=== PATIENT | male | born 1990 | race Caucasian/White ===

== ENCOUNTER 2016-07-28 12:32 | Emergency (ER) | payer SELFPAY ==
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
[2016-07-28 15:41] LABS: BASO # 0.1 K/uL (0.0-0.2); EOS # 0.1 K/uL (0.0-0.7); EOS % 0.9 % (0.0-4.0); HEMATOCRIT 48.2 % (35.0-51.0); LYMPH # 1.4 K/uL (1.0-4.3); LYMPH % 23.2 % (20.0-40.0); MEAN CELL VOLUME 95.6 fl (80.0-94.0); MEAN CORPUSCULAR HEMOGLOBIN 32.1 pg (27.0-31.0); MEAN CORPUSCULAR HGB CONC 33.6 g/dL (33.0-37.0); MEAN PLATELET VOLUME 8.8 fl (7.2-11.7); MONO # 0.6 K/uL (0.0-0.8); MONO % 10.3 % (0.0-10.0); NEUT # 3.8 K/uL (1.8-7.0); NEUT % 64.6 % (50.0-75.0); NRBC % 0.2 % (0.0-0.0); RED CELL DISTRIBUTION WIDTH 12.7 % (11.5-14.5); WHITE BLOOD COUNT 5.9 K/uL (4.8-10.8)
[2016-07-28 15:45] LABS: ALB/GLOB RATIO 1.3 (1.0-2.1); ALCOHOL SERUM < 10 mg/dl (0-10); ALKALINE PHOSPHATASE 82 U/L (38-126); ALT/SGPT 35 U/L (21-72); AST/SGOT 31 U/L (17-59); BILIRUBIN,TOTAL 1.2 mg/dl (0.2-1.3); BLOOD UREA NITROGEN 10 mg/dl (9-20); CALCIUM 9.8 mg/dL (8.4-10.2); CARBON DIOXIDE 27 mmol/L (22-30); CHLORIDE 100 mmol/L (98-107); GFR AFRICAN-AMERICAN > 60; GLUCOSE,RANDOM 99 mg/dL (75-110); POTASSIUM 4.2 MMOL/L (3.6-5.0); SODIUM 144 mmol/l (132-148); TOTAL PROTEIN 8.9 G/DL (6.3-8.2)
--- NOTE | 2016-07-28 16:49 | RAD ---
HISTORY: medical eval for pysch screening transfer COMPARISON: No prior. TECHNIQUE: Chest PA and lateral FINDINGS: LUNGS: No active pulmonary disease. PLEURA: No significant pleural effusion identified. No pneumothorax apparent. CARDIOVASCULAR: Normal. OSSEOUS STRUCTURES: No significant abnormalities. VISUALIZED UPPER ABDOMEN: Normal. OTHER FINDINGS: None. IMPRESSION: No active disease.
[2016-07-28 19:46] LABS: RBC URINE 2 /hpf (0-3); URINE BACTERIA RARE (<OCC); URINE BILIRUBIN NEGATIVE (NEGATIVE); URINE BLOOD NEGATIVE (NEGATIVE); URINE COLOR YELLOW (YELLOW); URINE GLUCOSE (UA) NEG (Normal); URINE KETONE NEGATIVE (NEGATIVE); URINE LEUKOCYTE ESTERASE SMALL Leu/uL (Negative); URINE PROTEIN NEGATIVE (NEGATIVE); URINE UROBILINOGEN 0.2-1.0 mg/dL (0.2-1.0); WBC URINE 5 /hpf (0-5)
[2016-07-28] MEDS ORDERED: DiphenhydrAMINE 50 mg/ml Inj ONE (21:28)
[2016-07-28] MEDS ORDERED: DiphenhydrAMINE 50 mg/ml Inj IM STA (21:48)
[2016-07-28 22:06] VITALS: RESP 18
[2016-07-28 23:55] VITALS: BP 128/80; PULSE 98; TEMP 98.2
[2016-07-28 23:59] VITALS: O2SAT 98
--- NOTE | 2016-07-29 10:51 | CARD ---
APPROVED REPORT EKG Measurement Heart [id number] <Conclusion> Normal sinus rhythm Normal ECG
== END 2016-07-29 00:17 | disposition short-term general hospital (02) ==
LOC: H.ER 12:32
DX: F20.9 Schizophrenia, unspecified (principal)
CPT/HCPCS: 71020; 80053; 81003; 85025; 93005; 96372; 99284; G0480; J1200; J1630

== ENCOUNTER 2018-08-03 21:50 | Emergency (ER) | payer MEDICAID, OTHER ==
[2018-08-03 21:57] VITALS: RESP 18
[2018-08-03 22:54] LABS: BARBITURATES, UR NEGATIVE (NEGATIVE); BENZODIAZEPINES, UR NEGATIVE (NEGATIVE); OPIATES, UR NEGATIVE (NEGATIVE); PHENCYCLIDINE, UR NEGATIVE (NEGATIVE)
--- NOTE | 2018-08-03 23:29 | ED PDOC ---
HPI: Psych/Substance Abuse Time Seen by Provider: 08/03/18 21:55 Chief Complaint (Nursing): Psychiatric Evaluation Chief Complaint (Provider): psychiatric evaluation History Per: Patient History/Exam Limitations: no limitations Onset/Duration Of Symptoms: Hrs (today) Current Symptoms Are (Timing): Still Present Associated Symptoms: denies: Suicidal Thoughts, Suicidal Plan Additional Complaint(s): Ha Zapien is a 28 year old male, with a past medical history of schizophrenia, who was brought to the emergency department by EMS and [facility] for psychiatric and medical evaluation. He takes Haldol 1mg QD and reports being compliant every day with his medication. Patient states he had an argument with his mother today, only verbal and there was no physical altercation involved. Patient reports being upset with his mom because she was using the phone and speaking with someone he doesn't know. He reports getting upset when his mother talks to people he doesn't know who they are. Patient denies any elicit drug use or alcohol usage today, no suicidal or homicidal ideation. No further medical complaints. PMD: None provided. Past Medical History Reviewed: Historical Data, Nursing Documentation, Vital Signs Vital Signs: Last Vital Signs Temp 97.6 F 08/03/18 21:55 Pulse 81 08/03/18 21:55 Resp 18 08/03/18 21:55 BP 124/74 08/03/18 21:55 Pulse Ox 100 08/03/18 21:55 - Medical History PMH: Schizophrenia Denies: Diabetes, Hepatitis, HIV, HTN, Seizures, Sexually Transmitted Disease - Surgical History Surgical History: No Surg Hx - Family History Family History: States: Unknown Family Hx - Social History Current smoker - smoking cessation education provided: Yes (Current some days smoker) Alcohol: Other Drugs: Other (K2 and unknown) - Allergies Allergies/Adverse Reactions: Allergies Allergy/AdvReac Type Severity Reaction Status Date / Time No Known Allergies Allergy Verified 07/28/16 12:35 Review of Systems ROS Statement: Except As Marked, All Systems Reviewed And Found Negative Psych: Negative for: Suicidal ideation (or homicidal ideation) Physical Exam - Reviewed Nursing Documentation Reviewed: Yes Vital Signs Reviewed: Yes - Physical Exam Appears: Positive for: No Acute Distress Head Exam: Positive for: ATRAUMATIC, NORMAL INSPECTION, NORMOCEPHALIC Skin: Positive for: Normal Color, Warm, Dry Eye Exam: Positive for: Normal appearance, EOMI, PERRL Neck: Positive for: Normal, Painless ROM Cardiovascular/Chest: Positive for: Regular Rate, Rhythm. Negative for: Murmur Respiratory: Positive for: Normal Breath Sounds. Negative for: Respiratory Distress Gastrointestinal/Abdominal: Positive for: Normal Exam, Soft. Negative for: Tenderness Back: Positive for: Normal Inspection Extremity: Positive for: Normal ROM (upper and lower extremities). Negative for: Deformity, Swelling Neurological/Psych: Positive for: Awake, Alert, Normal Tone, Oriented, Other (Slight delay in response time). Negative for: Motor/Sensory Deficits - ECG O2 Sat by Pulse Oximetry: 100 (RA) Pulse Ox Interpretation: Normal Medical Decision Making Medical Decision Making: Time: 21:55 A/P: 28 year old schizophrenic male presenting for verbal altercation. Patient doesn't pose a risk to self or other at this time. Will get crisis evaluation Plan: --Urine drug screen --Reevaluation 0000 Patient is cleared by crisis by Dr. Horta with diagnosis of paranoid schizophrenia. Remains calm and cooperative throughout stay. Scribe Attestation: Documented by Raji Kwong, acting as a scribe for Christos Fox MD Provider Scribe Attestation: All medical record entries made by the Scribe were at my direction and personally dictated by me. I have reviewed the chart and agree that the record accurately reflects my personal performance of the history, physical exam, medical decision making, and the department course for this patient. I have also personally directed, reviewed, and agree with the discharge instructions and disposition. Disposition - Clinical Impression Clinical Impression: Paranoid schizophrenia - Patient ED Disposition Is Patient to be Admitted: No Counseled Patient/Family Regarding: Diagnosis - Disposition Disposition: Routine/Home Disposition Time: 00:01 Condition: STABLE Additional Instructions: Patient is medically and psychiatrically stable for incarceration. Instructions: Schizophrenia (DC) Forms: [employer] ([place])
[2018-08-04 05:53] VITALS: BP 122/84; PULSE 74; TEMP 97.7; O2SAT 99
== END 2018-08-04 00:20 ==
LOC: H.ER 21:50
DX: F20.0 Paranoid schizophrenia (principal); F17.200 Nicotine dependence, unspecified, uncomplicated